=== PATIENT | female | born 1970 | race Hispanic/Latino ===

== ENCOUNTER 2018-12-31 18:24 | Emergency (ER) | payer OTHER ==
[~2018-12-31] VITALS: Ht 154.9 cm; Wt 65.8 kg
[2018-12-31] MEDS ORDERED: MECLIZINE HCL 12.5 MG TAB PO NR ×2 (19:30→22:30)
[2018-12-31] MEDS ORDERED: ONDANSETRON HCL INJ 2MG/ML 2ML 2 MG/ML VIAL IV NR ×2 (19:30→22:30)
[2018-12-31 20:00] LABS: CLARITY,URINE CLEAR (CLEAR); COLOR,URINE YELLOW (YELLOW); LEUKOCYTE ESTERASE ,URINE TRACE (NEGATIVE)
[2018-12-31 20:01] LABS: BILIRUBIN,URINE NEGATIVE (NEGATIVE); KETONES,URINE TRACE (NEGATIVE); NITRITE,URINE NEGATIVE (NEGATIVE); PROTEIN,URINE DIPSTICK NEGATIVE (NEGATIVE); URINE UROBILINOGEN 0.2 mg/dL (0.2 - 1)
[2018-12-31 20:04] LABS: BASOPHILS % 0.1 % (0.0-1.0); EOSINOPHILS % 0.1 % (0.0-6.0); HEMATOCRIT 40.3 % (34.2-44.1); HEMOGLOBIN 14.5 g/dL (12.0-16.0); LYMPHOCYTES % 1.7 % (18.0-39.1); MEAN CORPUSCULAR HEMOGLOBIN 32.5 pg (28-32); MEAN CORPUSCULAR VOLUME 90.4 fL (81-99); MONOCYTES % 0.7 % (4.4-11.3); NEUTROPHILS % 11.6 % (38.7-80.0); PLATELET COUNT 256 x10e3/uL (140-360); RED BLOOD COUNT 4.46 x10e6/uL (3.6-5.1); RED CELL DISTRIBUTION WIDTH 12.2 % (11.7-14.4)
[2018-12-31 20:16] LABS: RBC,URINE 0-5 /HPF (0-5)
[2018-12-31 20:17] LABS: AMORPHOUS SEDIMENT,URINE FEW (FEW); BACTERIA,URINE MANY /HPF; EPITHELIAL CELLS,URINE MODERATE /LPF; MUCUS,URINE FEW (RARE)
--- NOTE | 2018-12-31 20:18 | Diagnostic Imaging Report ---
Examination: Single AP view of the chest. COMPARISON: None. INDICATION: Dizziness DISCUSSION: Lines/tubes: None. Lungs: The lungs are well inflated and clear. No pneumonia or pulmonary edema. Pleura: No pleural effusion or pneumothorax. Heart and mediastinum: The heart and the mediastinum are unremarkable. Bones and soft tissues: No acute bony abnormalities. IMPRESSION: 1. No acute cardiopulmonary abnormalities. Signed by: Dr. Branden Huertas M.D. on 12/31/2018 8:15 PM
--- NOTE | 2018-12-31 20:27 | Diagnostic Imaging Report ---
History: Dizzy Comparison studies: None Technique: Axial images were obtained from the skull base to the vertex. Coronal and sagittal reconstructions obtained from the axial data. Dose modulation, iterative reconstruction, and/or weight based adjustment of the mA/kV was utilized to reduce the radiation dose to as low as reasonably achievable. Findings: Scalp/skull: No abnormalities. No fractures, blastic or lytic lesions. Extra-axial spaces: No masses. No fluid collections. Brain sulci: Appropriate for age. Ventricles: Normal in size and configuration. No hydrocephalus. Parenchyma: No abnormal densities. No masses, hemorrhage, acute or chronic cortical vascular insults. Sellar/suprasellar region: No abnormalities Craniocervical junction: Patent foramen magnum. No Chiari one malformation. IMPRESSION: No abnormalities . Signed by: DR Miko Kan M.D. on 12/31/2018 8:23 PM
[2018-12-31 20:35] LABS: ANION GAP 17.5 mmol/L (8-16); CARBON DIOXIDE 20 mmol/L (22-29); CHLORIDE 106 mmol/L (98-107); POTASSIUM 3.5 mmol/L (3.5-5.1); SODIUM 140 mmol/L (136-145)
[2018-12-31 20:36] LABS: ALANINE AMINOTRANSFERASE 55 IU/L (0-55); ALBUMIN 4.3 g/dL (3.5-5.0); ALBUMIN/GLOBULIN RATIO 1.2 (0.8-2.0); ALKALINE PHOSPHATASE 77 IU/L (40-150); BLOOD UREA NITROGEN 14 mg/dL (7-26); BUN/CREATININE RATIO 21 (6-25); CALCIUM 9.8 mg/dL (8.4-10.2); CREATINE KINASE 110 IU/L (29-168); CREATININE, SERUM 0.66 mg/dL (0.57-1.11); EST GLOMERULAR FILTRATION RATE > 60 ML/MIN (60-); GLUCOSE 103 mg/dL (74-118)
--- NOTE | 2018-12-31 22:55 | NUR ---
MD AWARE OF CURRENT BLOOD PRESSURES, HE WISHES TO NOT INTERVENE WITH BLOOD PRESSURES AT THIS MOMENT.
[2018-12-31] MEDS ORDERED: LORAZEPAM INJ 2 MG/ML VIAL IV ONE (23:45)
[2019-01-01 00:57] VITALS: BP 130/82
== END 2019-01-01 01:00 | disposition home or self-care (01) ==
LOC: ER 18:24
DX: R42 Dizziness and giddiness (principal); H81.11 Benign paroxysmal vertigo, right ear; E78.5 Hyperlipidemia, unspecified
CPT/HCPCS: 36415; 70450; 71045; 80053; 81001; 82550; 82553; 84484; 85025; 93005; 99284; J2060; J2405; J8597